=== PATIENT | female | born 1990 | race American Indian/Alaskan Native ===

== ENCOUNTER 2021-03-30 09:40 | Emergency (ER) | payer SELFPAY ==
[2021-03-30 09:46] VITALS: BP 127/62
--- NOTE | 2021-03-30 10:33 | Emergency Department Report ---
- General Chief Complaint: Earache Stated Complaint: SOB, BODY PAIN Source: patient Mode of arrival: Ambulatory Limitations: No Limitations - History of Present Illness Initial Comments: Patient is a 30-year-old female who presents emergency room with complaints of URI symptoms that began last night. She has associated sore throat, left ear pain, left jaw pain, chills, shortness of breath. She denies any cough, vomiting, diarrhea, fever. Patient denies any past medical history. No allergies to medications. Last menstrual cycle 03/12/2021. She denies any known sick contacts or recent travel. She has not been vaccinated for COVID-19. She reports that she did go out one night. - Related Data Previous Rx's Medication Instructions Recorded Last Taken Type Benzonatate [Tessalon Perles] 100 mg PO Q8HR PRN #12 capsule 03/30/21 Unknown Rx Nystas/Diphen/Xyl Visc/Mylanta 30 ml MM Q4H PRN #300 ml 03/30/21 Unknown Rx [Magic Mouthwash] guaiFENesin ER [Mucinex ER] 600 mg PO Q12H #14 tablet.er 03/30/21 Unknown Rx Allergies Allergy/AdvReac Type Severity Reaction Status Date / Time No Known Allergies Allergy Unverified 09/17/15 13:59 ED Review of Systems ROS: Stated complaint: SOB, BODY PAIN Other details as noted in HPI Comment: All other systems reviewed and negative ED Past Medical Hx - Social History Smoking Status: Never Smoker Substance Use Type: None - Medications Home Medications: Home Medications Medication Instructions Recorded Confirmed Last Taken Type Benzonatate [Tessalon Perles] 100 mg PO Q8HR PRN #12 capsule 03/30/21 Unknown Rx Nystas/Diphen/Xyl Visc/Mylanta 30 ml MM Q4H PRN #300 ml 03/30/21 Unknown Rx [Magic Mouthwash] guaiFENesin ER [Mucinex ER] 600 mg PO Q12H #14 tablet.er 03/30/21 Unknown Rx ED Physical Exam - General Limitations: No Limitations General appearance: alert, in no apparent distress - Head Head exam: Present: atraumatic, normocephalic - Eye Eye exam: Present: normal appearance - ENT ENT exam: Present: normal orophraynx, mucous membranes moist, TM's normal bilaterally, normal external ear exam - Respiratory Respiratory exam: Present: normal lung sounds bilaterally. Absent: respiratory distress, wheezes, rales, rhonchi, stridor, chest wall tenderness, accessory muscle use, decreased breath sounds, prolonged expiratory - Cardiovascular Cardiovascular Exam: Present: regular rate, normal rhythm, normal heart sounds. Absent: systolic murmur, diastolic murmur, rubs, gallop - Neurological Exam Neurological exam: Present: alert, oriented X3 - Psychiatric Psychiatric exam: Present: normal affect, normal mood - Skin Skin exam: Present: warm, dry, intact ED Course Vital Signs 03/30/21 03/30/21 09:43 13:14 Temperature 99.5 F Pulse Rate 101 H 103 H Respiratory 16 18 Rate Blood Pressure 127/62 O2 Sat by Pulse 99 100 Oximetry ED Medical Decision Making - Radiology Data Radiology results: report reviewed Ordering Physician: ELDER OLIVER Date of Service: 03/30/21 Procedure(s): XR chest routine 2V Accession Number(s): [id number] cc: ELDER OLIVER Fluoro Time In Minutes: CHEST 2 VIEWS INDICATION / CLINICAL INFORMATION: Shortness of breath. COMPARISON: None available. FINDINGS: SUPPORT DEVICES: None. HEART / MEDIASTINUM: The heart size and pulmonary vasculature are normal. LUNGS / PLEURA: There are probable blebs in both lung apices. No acute pulmonary or pleural abnormality is seen. No pneumothorax. ADDITIONAL FINDINGS: No significant additional findings. IMPRESSION: No acute findings. Signer Name: Ky Thomas MD Signed: 03/30/2021 11:12 AM Workstation Name: [id number] Transcribed By: RT Dictated By: Ky Thomas MD Electronically Authenticated By: Ky Thomas MD Signed Date/Time: 03/30/21 1112 DD/ 1110 TD/TT: - Medical Decision Making Patient is a 30-year-old female who presents emergency room with complaints of URI symptoms that began last night. She has associated sore throat, left ear pain, left jaw pain, chills, shortness of breath. She denies any cough, vomiting, diarrhea, fever. Patient denies any past medical history. No allergies to medications. Last menstrual cycle 03/12/2021. She denies any know n sick contacts or recent travel. She has not been vaccinated for COVID-19. She reports that she did go out one night. Vitals are stable. Breath sounds are clear bilaterally, no wheezing, no rales, no rhonchi, normal oropharynx. Centor criteria is negative, do not suspect strep. chest x-ray with no acute process. Do not suspect bacterial pneumonia or bacterial bronchitis. Symptoms and examination likely consistent with URI. Discussed supportive care and symptomatic treatment and the importance of oral hydration with patient. Advised patient please take medication as prescribed. Increase your water intake over the next several days. Follow-up with a primary care doctor for reexamination. Return to emergency room for any new or worsening symptoms. Recommend outpatient COVID-19 testing and if positive will need to self quarantine in accordance with the CDC guidelines. Critical care attestation.: If time is entered above; I have spent that time in minutes in the direct care of this critically ill patient, excluding procedure time. ED Disposition Clinical Impression: URI (upper respiratory infection) Qualifiers: URI type: unspecified URI Qualified Code(s): J06.9 - Acute upper respiratory infection, unspecified Disposition: 01 HOME / SELF CARE / HOMELESS Is pt being admited?: No Does the pt Need Aspirin: No Condition: Stable Instructions: Viral Respiratory Infection Additional Instructions: please take medication as prescribed. Increase your water intake over the next several days. Follow-up with a primary care doctor for reexamination. Return to emergency room for any new or worsening symptoms. Recommend outpatient COVID-19 testing and if positive will need to self quarantine in accordance with the CDC guidelines. Prescriptions: Nystas/Diphen/Xyl Visc/Mylanta [Magic Mouthwash] 30 ml MM Q4H PRN #300 ml PRN Reason: sore throat guaiFENesin ER [Mucinex ER] 600 mg PO Q12H #14 tablet.er Benzonatate [Tessalon Perles] 100 mg PO Q8HR PRN #12 capsule PRN Reason: cough Referrals: LYDIA GUERIN MD [Primary Care Provider] - 3-5 Days REMINGTON HOWELL MD [Staff Physician] - 3-5 Days [facility] [Provider Group] - 3-5 Days Time of Disposition: 11:27 Print Language: TELUGU
--- NOTE | 2021-03-30 11:16 | XRay Report ---
CHEST 2 VIEWS INDICATION / CLINICAL INFORMATION: Shortness of breath. COMPARISON: None available. FINDINGS: SUPPORT DEVICES: None. HEART / MEDIASTINUM: The heart size and pulmonary vasculature are normal. LUNGS / PLEURA: There are probable blebs in both lung apices. No acute pulmonary or pleural abnormali ty is seen. No pneumothorax. ADDITIONAL FINDINGS: No significant additional findings. IMPRESSION: No acute findings. Signer Name: Ky Thomas MD Signed: 03/30/2021 11:12 AM Workstation Name: [id number]
== END 2021-03-30 13:14 | disposition home or self-care (01) ==
LOC: ED 09:40
DX: J06.9 Acute upper respiratory infection, unspecified (principal)
CPT/HCPCS: 71046; 99283